=== PATIENT | female | born 1950 | race Caucasian/White ===

== ENCOUNTER 2021-07-17 23:17 | Emergency (ER) | payer OTHER ==
[~2021-07-17] VITALS: Ht 170.2 cm; Wt 81.6 kg
[2021-07-17] MEDS ORDERED: LEVO50TA8 PO (23:34)
[2021-07-18] MEDS ORDERED: ONDANSETRON 4 MG/2 ML VIAL ONE ×2 (00:22→09:28)
[2021-07-18] MEDS ORDERED: HYDROMORPHONE 1 MG/1 ML DISP.SYRIN ONE ×6 (00:23→11:13)
[2021-07-18 00:29] LABS: HEMATOCRIT 30.7 % (31.2-41.9); MEAN CORPUSCULAR HEMOGLOBIN 27.6 uug (24.7-32.8); MEAN CORPUSCULAR VOLUME 81.6 fL (75.5-95.3); PLATELET COUNT (AUTO) 297 K/uL (179-408)
[2021-07-18 00:35] LABS: CREATININE 0.9 mg/dL (0.6-1.3); POTASSIUM 3.6 mmol/L (3.5-5.1)
[2021-07-18 00:41] LABS: BILIRUBIN,DIRECT 0.1 mg/dL (0.0-0.2); BILIRUBIN,TOTAL 0.4 mg/dL (0.2-1.0); TOTAL PROTEIN, SERUM 7.1 g/dL (6.4-8.2)
[2021-07-18] MEDS ORDERED: HYDROMORPHONE 1 MG/1 ML DISP.SYRIN IV ONE ×6 (01:30→11:15)
[2021-07-18] MEDS ORDERED: IV D5W-0.45% NS +20 KCL 1,000 ML IV ONE ×2 (01:30→01:34)
[2021-07-18] MEDS ORDERED: ONDANSETRON 4 MG/2 ML VIAL IV ONE ×2 (09:30)
--- NOTE | 2021-07-18 11:19 | NUR ---
IV removed. Catheter intact and site benign. Pressure and 4x4 gauze applied to site. No bleeding noted.
--- NOTE | 2021-07-18 11:27 | NUR ---
Patient does not wish to proceed with medical care recommended by Dr. SULLIVAN/NAHUM. Patient given information related to possible complications, up to and including , which could occur as a result of leaving the hospital at this time. Patient verbalizes understanding of risks involved due to leaving against medical advice. Patient has signed AMA form.
== END 2021-07-18 11:30 | disposition left against medical advice (07) ==
LOC: ER 23:21
DX: S72.001A Fracture of unspecified part of neck of right femur, initial encounter for closed fracture (principal); W10.9XXA Fall (on) (from) unspecified stairs and steps, initial encounter; Y92.89 Other specified places as the place of occurrence of the external cause; Z96.651 Presence of right artificial knee joint; E03.9 Hypothyroidism, unspecified; Z79.890 Hormone replacement therapy; R94.31 Abnormal electrocardiogram [ECG] [EKG]; Z53.29 Procedure and treatment not carried out because of patient's decision for other reasons
CPT/HCPCS: 36415; 71045; 72170; 73502; 73564; 80048; 80076; 85025; 85730; 86850; 86900; 86901; 87426; 93005; 96374; 96375; 96376; 99285; J1170 ×6; J2405 ×2; J3490; A4663